=== PATIENT | male | born 1995 | race African-American/Black ===

== ENCOUNTER 2017-09-17 23:22 | Emergency (ER) | payer SELFPAY ==
[2017-09-17] MEDS ORDERED: Acyclovir 200 mg Capsule ONE (23:49)
[2017-09-17] MEDS ORDERED: Dexamethasone 4 MG TAB ONE ×2 (23:49→23:52)
== END 2017-09-18 00:10 | disposition home or self-care (01) ==
LOC: MADERS 23:22
DX: B02.9 Zoster without complications (principal)
CPT/HCPCS: 99282; J8540